=== PATIENT | male | born 1985 | race Caucasian/White ===

== ENCOUNTER 2020-01-03 18:33 | Emergency (ER) | payer MEDICARE, MEDICAID, SELFPAY ==
[2020-01-03 18:34] VITALS: BP 114/88; PULSE 83; RESP 16; TEMP 37; O2SAT 99; BMI 21.1
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
[2020-01-03 19:30] VITALS: BP 121/68; PULSE 62; RESP 18; O2SAT 100
[2020-01-03] MEDS: HYDROcodone-acetaminophen 5-325 mg Tablet 1 TAB PO (19:32)
== END 2020-01-03 19:41 | disposition home or self-care (01) ==
PROVIDERS: Emergency Provider Family Medicine; Family Provider Family Medicine; PCP Family Medicine
DX: T23.171A Burn of first degree of right wrist, initial encounter (principal); T20.16XA Burn of first degree of forehead and cheek, initial encounter; X08.8XXA Exposure to other specified smoke, fire and flames, initial encounter; F17.210 Nicotine dependence, cigarettes, uncomplicated
CPT/HCPCS: 12345; 99281; 99282

== ENCOUNTER 2020-03-07 13:35 | Emergency (ER) | payer MEDICARE, MEDICAID, SELFPAY ==
[2020-03-07 13:36] VITALS: BMI 21.1
[2020-03-07 13:41] VITALS: BP 116/70; PULSE 49; RESP 16; TEMP 37; O2SAT 100
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
[2020-03-07] MEDS: ondansetron 2 mg/ML SDV 2 mL 4 MG IVP (14:00)
[2020-03-07] MEDS: sodium chloride 0.9% 1,000 ML 999 ML IV (14:01)
[2020-03-07] MEDS: morphine 4 mg/mL SDV 1 mL IVP (14:01)
[2020-03-07] MEDS: iohexol 300 mg/mL 100 mL Btl IV (14:09)
[2020-03-07 14:16] LABS: Basophils % 0.6 %; Eosinophils # 0.1 10^3/uL (0.0-0.8); Eosinophils % 0.9 %; Hematocrit 37.8 % (42.0-52.0); Hemoglobin 12.4 g/dL (11.7-16.6); Lymphocytes # 3.6 10^3/uL (0.8-4.8); Lymphocytes % 53.7 %; Mean Corpuscular HGB Conc 32.8 g/dL (30.0-36.0); Mean Corpuscular Hemoglobin 31.9 pg (28.0-34.0); Mean Corpuscular Volume 97.2 fL (80-94); Mean Platelet Volume 9.8 fL (7.4-10.4); Monocytes # 0.6 10^3/uL (0.2-0.9); Monocytes % 9.6 %; Neutrophils # 2.34 10^3/uL (1.8-7.7); Neutrophils % 35.1 %; Nucleated Red Blood Cells % 0 %; Platelet Count 121 10^3/cmm (130-400); Red Blood Count 3.89 10^6/uL (4.1-5.3); Red Cell Distribution Width 13.3 % (12.1-15.1); White Blood Count 6.7 10^3/uL (4.0-10.0)
[2020-03-07 14:31] LABS: Alanine Aminotransferase 16 U/L (0-41); Alkaline Phosphatase 53 IU/L (40-130); Anion Gap 11.3 (5-19); Aspartate Amino Transferase 17 U/L (0-40); Blood Urea Nitrogen 15 mg/dL (6-20); Calcium 9.6 mg/dL (8.5-10.5); Carbon Dioxide 28 mmol/L (22-29); Chloride 104 mmol/L (98-107); Globulin 1.9 g/dL (1.3-4.6); Glomerular Filtration Rate 85.5 mL/min (90-130); Glucose 93 mg/dL (65-115); Osmolality Calculated 284 mOsm/kg (285-295); Potassium 4.3 mmol/L (3.5-5.1); Sodium 139 mmol/L (136-145); Total Bilirubin 0.4 mg/dL (0.15-1.2); Total Protein 5.9 g/dL (6.6-8.7)
[2020-03-07 15:26] VITALS: BP 108/70; PULSE 63; RESP 14; O2SAT 100
== END 2020-03-07 15:27 | disposition home or self-care (01) ==
PROVIDERS: Emergency Provider Emergency Medicine; PCP Family Medicine
DX: S32.038A Other fracture of third lumbar vertebra, initial encounter for closed fracture (principal); Y09 Assault by unspecified means; F17.210 Nicotine dependence, cigarettes, uncomplicated
CPT/HCPCS: 12345; 74177; 80053; 85025; 96361; 96374; 96375; 99282; 99283; J2270; J2405; J7030; Q9967

== ENCOUNTER 2021-07-22 11:26 | Emergency (ER) | payer MEDICARE, MEDICAID, SELFPAY ==
[2021-07-22 11:28] VITALS: BP 114/69; PULSE 60; RESP 15; TEMP 36.9; O2SAT 99; BMI 25.6
--- NOTE | 2021-07-22 11:37 | ECG_ITS ---
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 Measurements Intervals [place] Rate: 67 P: 70 MO: 195 QRS: 53 QRSD: 99 T: 52 QT: 425 QTc: 449 Interpretive Statements SINUS RHYTHM WITH SINUS ARRHYTHMIA Compared to ECG 11/06/2018 22:51:15 No significant changes Electronically Signed On 07-22-2021 20:38:37 SPECIAL [employer] by Jez Bowling M.D. [email or web address]
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
--- NOTE | 2021-07-22 11:38 | CT_ITS ---
WS: [id number] CT CERVICAL SPINE HISTORY: Neck pain after seizure. TECHNIQUE: Contiguous 2.5 mm axial imaging performed through the entire cervical spine. Sagittal and coronal reformats also performed. [facility] use at least one of these dose o ptimization techniques: automated exposure control; mA and/or kV adjustment per patient size (include s targeted exams where dose is matched to clinical indication); or iterative reconstruction. DLP: 627.62 mGy.cm COMPARISON: 02/01/2017 Normal cervical alignment. Craniocervical junction, atlantodental interval and C1-C2 alignment is nor mal. C2-C3: Normal. C3-C4: Normal. C4-C5: Normal. C5-C6: Normal. C6-C7: Normal. C7-T1: Normal. Soft tissues are normal. Lung apices are clear. CT/CT cervical spin wo con* [id number] IMPRESSION: Normal cervical spine.
--- NOTE | 2021-07-22 11:38 | CT_ITS ---
WS: [id number] CT HEAD NONCONTRAST HISTORY: new onset seizure TECHNIQUE: Contiguous axial imaging performed through the brain in 2.5 mm imaging. Bone and soft tiss ue windows. Sagittal and coronal reformats reviewed. All CT scans at [facility] use at least one of these dose optimization techniques: automated exposure control; mA and/or kV adjustment per pa tient size (includes targeted exams where dose is matched to clinical indication); or iterative recon struction. DLP: 925.69 mGy.cm COMPARISON: 11/07/2018 No acute intracranial hemorrhage, midline shift or mass effect. No atrophy or prior infarcts or herniation. Ventricles: Normal size with no hydrocephalus. Paranasal sinuses: As visualized are clear. Mastoid air cells: Well pneumatized. Calvarium and scalp: Skull is intact with no soft tissue edema or swelling. CT/CT head wo con* [id number] IMPRESSION: Negative head CT.
[2021-07-22 12:27] LABS: Basophils # 0.1 10^3/uL (0.0-0.1); Basophils % 0.6 %; Eosinophils # 0.1 10^3/uL (0.0-0.8); Eosinophils % 0.7 %; Hemoglobin 15.8 g/dL (11.7-16.6); Lymphocytes # 3.3 10^3/uL (0.8-4.8); Lymphocytes % 36.4 %; Mean Corpuscular HGB Conc 33.6 g/dL (30.0-36.0); Mean Corpuscular Hemoglobin 31.5 pg (28.0-34.0); Mean Corpuscular Volume 93.8 fl (80-94); Mean Platelet Volume 10.4 fL (7.4-10.4); Monocytes # 0.6 10^3/uL (0.2-0.9); Monocytes % 6.5 %; Neutrophils # 4.96 10^3/uL (1.8-7.7); Neutrophils % 55.6 %; Nucleated Red Blood Cells % 0 %; Platelet Count 232 10^3/cmm (130-400); Red Blood Count 5.01 10^6/uL (4.1-5.3); Red Cell Distribution Width 13.9 % (12.1-15.1); White Blood Count 8.9 10^3/uL (4.0-10.0)
[2021-07-22 12:51] LABS: Alanine Aminotransferase 11 U/L (0-41); Albumin Level 4.9 g/dL (3.5-5.2); Alkaline Phosphatase 81 IU/L (40-130); Anion Gap 22.9 (5-19); Aspartate Amino Transferase 17 U/L (0-40); Blood Urea Nitrogen 16 mg/dL (6-20); Calcium 9.7 mg/dL (8.5-10.5); Carbon Dioxide 21 mmol/L (22-29); Chloride 98 mmol/L (98-107); Creatine Phosphokinase 100 U/L (39-308); Creatinine Clr Calc Pharmacy 150.1117; Globulin 3.3 g/dL (1.3-4.6); Glomerular Filtration Rate 109.4 mL/min (90-130); Glucose 99 mg/dL (65-115); Osmolality Calculated 287 mOsm/kg (285-295); Potassium 3.9 mmol/L (3.5-5.1); Sodium 138 mmol/L (136-145); Total Bilirubin 0.6 mg/dL (0.15-1.2); Total Protein 8.2 g/dL (6.6-8.7)
[2021-07-22 14:00] VITALS: BP 102/65; PULSE 66; RESP 15; O2SAT 100
== END 2021-07-22 14:01 | disposition home or self-care (01) ==
PROVIDERS: Emergency Provider Family Medicine; PCP Family Medicine
DX: S09.8XXA Other specified injuries of head, initial encounter (principal); G40.89 Other seizures; F17.210 Nicotine dependence, cigarettes, uncomplicated; Y08.02XA Assault by strike by baseball bat, initial encounter
CPT/HCPCS: 70450; 72125; 80053; 82550; 85025; 93005; 99283

== ENCOUNTER 2023-03-27 10:25 | Emergency (ER) | payer MEDICARE, MEDICAID, SELFPAY ==
[2023-03-27 10:28] VITALS: BMI 17.8
--- NOTE | 2023-03-27 10:30 | ED_ITS ---
HPI - Weakness General: Chief complaint: Seizure Stated complaint: WEAKNESS Time Seen by Provider: 03/27/23 10:27 Source: patient Mode of arrival: EMS History of Present Illness: 37-year-old male with a history of seizures presents emergency room reporting having multiple seizures last couple days. Is been living in a trailer where there is no air conditioning he does state he has been taking all of his medications he has listed in his medication list diet valproic acid 500 mg once daily but he has a bottle with him of Keppra which is 500 mg twice daily he did not think he was taking it at valproic acid any longer. He had a couple of seizures last night and 3 this morning. He relates overall [place]. He is somewhat lethargic on arrival here but is able to give fairly good details. EMS reports they did not witness any seizure activity in route. MD Complaint: generalized weakness Onset (ago): day(s) Duration: intermittent Relieving factors: none Exacerbating factors: none Associated symptoms: Reports confusion; Denies chest pain, chills, melena, decreased appetite, diaphoresis, dysuria, easy bruising, fever(s), headache(s), myalgias, nausea, rash, short of breath, syncope or vomiting Review of Systems Const: Reports: fatigue and malaise; Denies: fever(s), chills or diaphoresis ENMT: Denies: throat pain, ear or mastoid pain, nasal discharge or nasal congestion Card: Denies: chest pain, palpitations, irregular heart rhythm, edema or syncope Resp: Denies: dyspnea, productive cough or non-productive cough GI: Denies: abdominal pain, nausea, vomiting or melena : Denies: dysuria, urinary frequency or urinary urgency Skin/Breast: Denies: rash or pruritus Neuro: Reports: confusion; Denies: headache(s) Johnnie/Lymph: Denies: easy bruising PFS ED PFSH: Medical History Closed head injury Generalized seizure Social History Smoking and tobacco status: current every day smoker Physical Exam Const: GENERAL APPEARANCE: cooperative and comfortable ORIENTATION/CONSCIOUSNESS: Yes awake, Yes oriented to person, Yes oriented to place and Yes oriented to time HENMT: COMMON NORMALS: normocephalic, atraumatic and hearing grossly normal bilaterally HEAD & SCALP: normocephalic and atraumatic Resp: COMMON NORMALS: normal respiratory effort, No retractions, No use of accessory muscles and clear to auscultation bilaterally AUSCULTATION: clear to auscultation bilaterally Cardio: COMMON NORMALS: regular rate, regular rhythm and No murmurs present (Cardio) RATE: regular rate RHYTHM: regular rhythm GI: COMMON NORMALS: Soft to palpation and No hepatosplenomegaly present AUSCULTATION: Yes normoactive bowel sounds PALPATION: Yes Soft to palpation, No Tenderness to palpation present (GI), No Guarding due to palpation present (GI) and Yes No hepatosplenomegaly present Extremity: COMMON NORMALS: normal to inspection, capillary refill normal, no clubbing, cyanosis or edema, no calf tenderness and no pedal edema Neuro: SENSORIUM/ORIENTATION: Yes oriented to person, Yes oriented to place and Yes oriented to time Skin: COMMON NORMALS: no rashes or lesions noted GENERAL SKIN EXAM: no rashes or lesions noted Course Vital Signs: Vital signs: Vital Signs Temperature 98.8 F 03/27/23 10:31 Pulse Rate 48 L 03/27/23 13:00 Respiratory Rate 16 03/27/23 13:00 Blood Pressure 106/70 03/27/23 13:00 Pulse Oximetry 100 03/27/23 13:00 Oxygen Delivery Me thod Room Air 03/27/23 13:00 MDM - Weakness Medical Decision Making Labs unremarkable. mobile lab technician reviewed is not appears to take his medications he has not had filled for subhilar. He stopped taking divalproex acid. Continue his low Bactrim and did load him. Here continue his current dose. We discussed other options. Patient became more awake currently and wishes to leave. I strongly encouraged to establish with primary care and neurology. Medical Records I reviewed the patient's medical records. Lab Data I reviewed the patient's lab results. 03/27/23 11:19 03/27/23 11:19 Laboratory Results WBC 6.47 10^3/uL (3.29-11.43) 03/27/23 11:19 RBC 4.17 10^6/uL (3.85-5.65) 03/27/23 11:19 Hgb 13.20 g/dL (11.27-16.99) 03/27/23 11:19 Hct 39.8 % (37-53) 03/27/23 11:19 MCV 95.4 fl (82-101) 03/27/23 11:19 MCH 31.7 pg (27-33) 03/27/23 11:19 MCHC 33.2 g/dL (30-55) 03/27/23 11:19 RDW 15.0 % (12.1-15.1) 03/27/23 11:19 Plt Count 161 10^3/cmm (157-399) 03/27/23 11:19 MPV 9.6 fL (7.4-10.4) 03/27/23 11:19 Neut % (Auto) 48.7 % 03/27/23 11:19 Lymph % (Auto) 42.0 % 03/27/23 11:19 [place] % (Auto) 7.4 % 03/27/23 11:19 Eos % (Auto) 1.2 % 03/27/23 11:19 Baso % (Auto) 0.5 % 03/27/23 11:19 Neut # (Auto) 3.15 10^3/uL (1.8-7.7) 03/27/23 11:19 Lymph # (Auto) 2.7 10^3/uL (0.8-4.8) 03/27/23 11:19 [place] # (Auto) 0.5 10^3/uL (0.2-0.9) 03/27/23 11:19 Eos # (Auto) 0.1 10^3/uL (0.0-0.8) 03/27/23 11:19 Baso # (Auto) 0.0 10^3/uL (0.0-0.1) 03/27/23 11:19 Nucleated RBC % (auto) 0 % 03/27/23 11:19 Nucleated RBCs # 0.0 /100WBC 03/27/23 11:19 Sodium 142 mmol/L (136-145) 03/27/23 11:19 Potassium 4.2 mmol/L (3.5-5.1) 03/27/23 11:19 Chloride 107 mmol/L (98-107) 03/27/23 11:19 Carbon Dioxide 27 mmol/L (22-29) 03/27/23 11:19 Anion Gap 12.2 (5-19) 03/27/23 11:19 BUN 19 mg/dL (6-20) 03/27/23 11:19 Creatinine 0.7 mg/dL (0.7-1.2) 03/27/23 11:19 GFR Calculation 126.9 mL/min (90-130) 03/27/23 11:19 Glucose 97 mg/dL (65-115) 03/27/23 11:19 Calculated Osmolality 296 mOsm/kg (285-295) H 03/27/23 11:19 Calcium 9.0 mg/dL (8.5-10.5) 03/27/23 11:19 Total Bilirubin 0.3 mg/dL (0.15-1.2) 03/27/23 11:19 AST 18 U/L (0-40) 03/27/23 11:19 ALT 12 U/L (0-41) 03/27/23 11:19 Alkaline Phosphatase 88 U/L (40-130) 03/27/23 11:19 Total Protein 6.3 g/dL (6.6-8.7) L 03/27/23 11:19 Albumin 4.4 g/dL (3.5-5.2) 03/27/23 11:19 Globulin 1.9 g/dL (1.3-4.6) 03/27/23 11:19 Valproic Acid 2.8 ug/mL (50-100) L 03/27/23 11:19 Levetiracetam 53.1 mcg/mL (6.0-46.0) H 03/27/23 11:19 Discharge Plan Discharge Patient Disposition: Home Clinical Impression: Generalized seizure Condition: Stable Prescriptions: No Action levetiracetam 1,000 mg tablet 1,000 mg PO BID Discharge Orders: Discharge ED (Routine); Ordered 03/27/23 Ordered By: Mook Cruz Referrals: Pastora Kaplan MD [Primary Care Provider] - Discharge Diet: Usual diet Discharge Activity: Limit activity as instructed Patient Instructions: Opioid Safety, Pain Management Activity Restrictions/Additional Instructions: Recommend you resume taking your Keppra regularly at 1000 mg twice a day Case management will help get you set up with neurologist and a primary care physi nara. Coding Level of Care Code ED Insemination Worker for Thomas Workman
[2023-03-27 10:31] VITALS: BP 110/69; PULSE 44; RESP 16; TEMP 37.1; O2SAT 100
[2023-03-27 10:45] VITALS: BP 103/72; PULSE 52; RESP 19; O2SAT 99
[2023-03-27 11:00] VITALS: BP 114/72; PULSE 48; RESP 12; O2SAT 99
[2023-03-27 11:15] VITALS: BP 114/72; PULSE 49; RESP 18; O2SAT 100
[2023-03-27 11:28] LABS: Basophils % 0.5 %; Eosinophils # 0.1 10^3/uL (0.0-0.8); Eosinophils % 1.2 %; Hematocrit 39.8 % (37-53); Lymphocytes # 2.7 10^3/uL (0.8-4.8); Mean Corpuscular HGB Conc 33.2 g/dL (30-55); Mean Corpuscular Hemoglobin 31.7 pg (27-33); Mean Corpuscular Volume 95.4 fl (82-101); Mean Platelet Volume 9.6 fL (7.4-10.4); Monocytes # 0.5 10^3/uL (0.2-0.9); Monocytes % 7.4 %; Neutrophils # 3.15 10^3/uL (1.8-7.7); Neutrophils % 48.7 %; Nucleated Red Blood Cells % 0 %; Platelet Count 161 10^3/cmm (157-399); Red Blood Count 4.17 10^6/uL (3.85-5.65); White Blood Count 6.47 10^3/uL (3.29-11.43)
[2023-03-27 11:30] VITALS: PULSE 47; RESP 18; O2SAT 100
[2023-03-27 13:00] VITALS: BP 106/70; PULSE 48; RESP 16; O2SAT 100
[2023-03-27 13:10] LABS: Alanine Aminotransferase 12 U/L (0-41); Albumin Level 4.4 g/dL (3.5-5.2); Alkaline Phosphatase 88 U/L (40-130); Anion Gap 12.2 (5-19); Aspartate Amino Transferase 18 U/L (0-40); Blood Urea Nitrogen 19 mg/dL (6-20); Carbon Dioxide 27 mmol/L (22-29); Chloride 107 mmol/L (98-107); Globulin 1.9 g/dL (1.3-4.6); Glomerular Filtration Rate 126.9 mL/min (90-130); Glucose 97 mg/dL (65-115); Osmolality Calculated 296 mOsm/kg (285-295); Potassium 4.2 mmol/L (3.5-5.1); Sodium 142 mmol/L (136-145); Total Bilirubin 0.3 mg/dL (0.15-1.2); Total Protein 6.3 g/dL (6.6-8.7)
[2023-03-27 13:11] LABS: Valproic Acid Level 2.8 ug/mL (50-100)
--- NOTE | 2023-03-27 15:33 | DCPLANNER ---
Addendum entered by Dorota Hernandez 04/04/23 13:53: Patient has a follow up appointment scheduled for March at 2:[address] Cordero at neurology. Original Note: architectural project manager had message to schedule a follow up appointment for patient for neurology. architectural project manager sent patients information to the front office staff at neurology. Patients information will be printed and reviewed. Clinic will call patient with appointment information.
--- NOTE | 2023-03-27 15:34 | DCPLANNER ---
ux manager had message to speak with patient about primary care follow up. outsole caser called phone number [phone], unable to speak with patient at this time, a voicemail was left for patient to return community case manager phone call.
[2023-03-28 11:01] LABS: Levetiracetam Immunoassy 53.1 mcg/mL (6.0-46.0)
== END 2023-03-27 13:29 | disposition home or self-care (01) ==
PROVIDERS: Emergency Provider Family Medicine; PCP Family Medicine
DX: G40.409 Other generalized epilepsy and epileptic syndromes, not intractable, without status epilepticus (principal); F17.210 Nicotine dependence, cigarettes, uncomplicated
CPT/HCPCS: 36415; 80053; 80164; 80177; 85025; 96365; 99284; J1953

== ENCOUNTER → 2023-04-06 10:02 | Outpatient (BNVA) | payer MEDICARE, MEDICAID, SELFPAY | PROVIDERS: PCP Family Medicine; Referring Provider Family Medicine; Visit Provider Specialist | DX: G40.309 Generalized idiopathic epilepsy and epileptic syndromes, not intractable, without status epilepticus | CPT/HCPCS: 99205 ==

== ENCOUNTER 2023-05-19 16:18 | Emergency (ER) | payer MEDICARE, MEDICAID, SELFPAY ==
--- NOTE | 2023-05-19 16:24 | ED_ITS ---
HPI - Seizure General: Chief Complaint: Seizure Stated Complaint: seizures Time Seen by Provider: 05/19/23 16:19 Source: patient Mode of arrival: ambulatory History of Present Illness: HPI Narrative: 37-year-old male presents emergency room complaining of having had a seizure. Patient did not get his Keppra today. He reports having had 1 seizure so far. History of previous seizures he is currently on Keppra. MD complaint: seizure Seizure History: Yes Associated symptoms: Deny chest pain, chills or fever(s) Review of Systems Const: Denies: fever(s) or chills Card: Denies: chest pain Resp: Denies: dyspnea GI: Denies: abdominal pain : Denies: dysuria, urinary frequency or urinary urgency Musc: Denies: neck pain or back pain Skin/Breast: Denies: rash PFSH ED PFSH: Medical History Closed head injury Generalized seizure Social History Smoking and tobacco/nicotine status: current every day tobacco/nicotine user Physical Exam Const: COMMON NORMALS: no acute distress GENERAL APPEARANCE: cooperative and comfortable ORIENTATION/CONSCIOUSNESS: Yes awake, Yes oriented to person, Yes oriented to place and Yes oriented to time HENMT: COMMON NORMALS: normocephalic, atraumatic and hearing grossly normal bilaterally HEAD & SCALP: normocephalic and atraumatic Resp: COMMON NORMALS: normal respiratory effort, No retractions, No use of accessory muscles and clear to auscultation bilaterally AUSCULTATION: clear to auscultation bilaterally Cardio: COMMON NORMALS: regular rate, regular rhythm and No murmurs present (Cardio) RATE: regular rate RHYTHM: regular rhythm GI: COMMON NORMALS: Soft to palpation and No hepatosplenomegaly present AUSCULTATION: Yes normoactive bowel sounds PALPATION: Yes Soft to palpation, No Tenderness to palpation present (GI), No Guarding due to palpation present (GI) and Yes No hepatosplenomegaly present Extremity: COMMON NORMALS: normal to inspection, capillary refill normal, no clubbing, cyanosis or edema, no calf tenderness and no pedal edema Neuro: SENSORIUM/ORIENTATION: Yes oriented to person, Yes oriented to place and Yes oriented to time Skin: COMMON NORMALS: no rashes or lesions noted GENERAL SKIN EXAM: no rashes or lesions noted MDM - Seizure MDM Narrative Medical decision making narrative: Patient given IV Keppra will start p.o. Keppra. Follow-up with his neurologist within the next week. Return if has further seizures. Lab Data 05/19/23 16:40 05/19/23 16:40 Labs: Radiology Impressions Cervical Spine X-Ray 05/19/23 16:34 IMPRESSION: No acute findings. Head CT 05/19/23 16:34 IMPRESSION: 1. No acute intracranial injury identified. 2. Incidental paranasal sinus disease as above. Laboratory Results WBC 8.31 10^3/uL (3.29-11.43) 05/19/23 16:40 RBC 4.61 10^6/uL (3.85-5.65) 05/19/23 16:40 Hgb 14.80 g/dL (11.27-16.99) 05/19/23 16:40 Hct 43.1 % (37-53) 05/19/23 16:40 MCV 93.5 fl (82-101) 05/19/23 16:40 MCH 32.1 pg (27-33) 05/19/23 16:40 MCHC 34.3 g/dL (30-55) 05/19/23 16:40 RDW 14.5 % (12.1-15.1) 05/19/23 16:40 Plt Count 216 10^3/cmm (157-399) 05/19/23 16:40 MPV 9.3 fL (7.4-10.4) 05/19/23 16:40 Neut % (Auto) 60.7 % 05/19/23 16:40 Lymph % (Auto) 27.2 % 05/19/23 16:40 [place] % (Auto) 9.3 % 05/19/23 16:40 Eos % (Auto) 1.7 % 05/19/23 16:40 Baso % (Auto) 0.7 % 05/19/23 16:40 Neut # (Auto) 5.05 10^3/uL (1.8-7.7) 05/19/23 16:40 Lymph # (Auto) 2.3 10^3/uL (0.8-4.8) 05/19/23 16:40 [place] # (Auto) 0.8 10^3/uL (0.2-0.9) 05/19/23 16:40 Eos # (Auto) 0.1 10^3/uL (0.0-0.8) 05/19/23 16:40 Baso # (Auto) 0.1 10^3/uL (0.0-0.1) 05/19/23 16:40 Nucleated RBC % (auto) 0 % 05/19/23 16:40 Nucleated RBCs # 0.0 /100WBC 05/19/23 16:40 Sodium 140 mmol/L (136-145) 05/19/23 16:40 Potassium 4.4 mmol/L (3.5-5.1) 05/19/23 16:40 Chloride 101 mmol/L (98-107) 05/19/23 16:40 Carbon Dioxide 26 mmol/L (22-29) 05/19/23 16:40 Anion Gap 17.4 (5-19) 05/19/23 16:40 BUN 15 mg/dL (6-20) 05/19/23 16:40 Creatinine 0.9 mg/dL (0.7-1.2) 05/19/23 16:40 GFR Calculation 95.0 mL/min (90-130) 05/19/23 16:40 Glucose 108 mg/dL (65-115) 05/19/23 16:40 Calculated Osmolality 291 mOsm/kg (285-295) 05/19/23 16:40 Calcium 10.1 mg/dL (8.5-10.5) 05/19/23 16:40 Magnesium 2.2 mg/dL (1.7-2.3) 05/19/23 16:40 Total Bilirubin 0.4 mg/dL (0.15-1.2) 05/19/23 16:40 AST 18 U/L (0-40) 05/19/23 16:40 ALT 14 U/L (0-41) 05/19/23 16:40 Alkaline Phosphatase 120 U/L (40-130) 05/19/23 16:40 Total Protein 7.8 g/dL (6.6-8.7) 05/19/23 16:40 Albumin 4.6 g/dL (3.5-5.2) 05/19/23 16:40 Globulin 3.2 g/dL (1.3-4.6) 05/19/23 16:40 No radiology studies performed this visit Discharge Plan Discharge Patient Disposition: Home Clinical Impression: Generalized seizure Condition: Stable Prescriptions: New levetiracetam 500 mg tablet extended release 24 hr 2,000 mg PO Q24H Qty: 120 0RF No Action levetiracetam [Keppra XR] 500 mg tablet extended release 24 hr 2,000 mg PO DAILY Qty: 120 10RF citalopram 20 mg tablet 20 mg PO DAILY Qty: 30 10RF levetiracetam 1,000 mg tablet 1,000 mg PO BID Discharge Orders: Discharge ED (Routine); Ordered 05/19/23 Ordered By: Mook Cruz Referrals: Pastora Kaplan MD [Primary Care Provider] - Discharge Diet: Usual diet Discharge Activity: Resume usual activity Patient Instructions: Opioid Safety, Pain Management Coding Level of Care Code ED Forest Management Teacher for Thomas Workman
--- NOTE | 2023-05-19 16:34 | XRR_ITS ---
PROCEDURE INFORMATION: Exam: XR Cervical Spine Exam date and time: 05/19/2023 4:46 PM Age: 37 years old Clinical indication: Injury or trauma; Other: Seizure; Other: Unknown TECHNIQUE: Imaging protocol: Radiologic exam of the cervical spine. Views: 3 views. Other technique: AP, lateral and AP open mouth odontoid views of the cervical spine are submitted. COMPARISON: CT cervical spin wo con* [id number] 07/22/2021 11:53 AM FINDINGS: Bones/joints: Normal. No acute fracture. Normal alignment. Soft tissues: Unremarkable. XR/XR cervical spine 3V* [id number] IMPRESSION: No acute findings.
--- NOTE | 2023-05-19 16:34 | CTR_ITS ---
PROCEDURE INFORMATION: Exam: CT Head Without Contrast Exam date and time: 05/19/2023 4:56 PM Age: 37 years old Clinical indication: Injury or trauma; Other: Seizure; Blunt trauma (contusions or hematomas); Consciousness not specified; Additional info: Head trauma TECHNIQUE: Imaging protocol: Computed tomography of the head without contrast. Radiation optimization: All CT scans at this facility use at least one of these dose optimization techniques: automated exposure control; mA and/or kV adjustment per patient size (includes targeted exams where dose is matched to clinical indication); or iterative reconstruction. REPORTING DATA: Count of CT and Cardiac NM exams in prior 12 months: This patient has received 0 known CTs and 0 known cardiac nuclear medicine studies in the 12 months prior to the current study. COMPARISON: CT head wo con* [id number] 07/22/2021 11:50 AM RADIATION DOSE METRICS: Total DLP (mGy-cm): 972.18 FINDINGS: Brain: Normal. No hemorrhage. Unremarkable white matter. No mass effect. Ventricles: No hydrocephalus or evidence of increased intracranial pressure. Paranasal sinuses: Dependent fluid/mucous posteroinferior left frontal sinus. Mastoid air cells: Visualized mastoid air cells are well aerated. Bones/joints: No acute abnormality. No acute fracture. Soft tissues: Unremarkable. CT/CT head wo con* [id number] IMPRESSION: 1. No acute intracranial injury identified. 2. Incidental paranasal sinus disease as above.
[2023-05-19 16:58] LABS: Basophils # 0.1 10^3/uL (0.0-0.1); Basophils % 0.7 %; Eosinophils # 0.1 10^3/uL (0.0-0.8); Eosinophils % 1.7 %; Hematocrit 43.1 % (37-53); Lymphocytes # 2.3 10^3/uL (0.8-4.8); Lymphocytes % 27.2 %; Mean Corpuscular HGB Conc 34.3 g/dL (30-55); Mean Corpuscular Hemoglobin 32.1 pg (27-33); Mean Corpuscular Volume 93.5 fl (82-101); Mean Platelet Volume 9.3 fL (7.4-10.4); Monocytes # 0.8 10^3/uL (0.2-0.9); Monocytes % 9.3 %; Neutrophils # 5.05 10^3/uL (1.8-7.7); Neutrophils % 60.7 %; Nucleated Red Blood Cells % 0 %; Platelet Count 216 10^3/cmm (157-399); Red Blood Count 4.61 10^6/uL (3.85-5.65); Red Cell Distribution Width 14.5 % (12.1-15.1); White Blood Count 8.31 10^3/uL (3.29-11.43)
[2023-05-19 17:16] LABS: Alanine Aminotransferase 14 U/L (0-41); Albumin Level 4.6 g/dL (3.5-5.2); Alkaline Phosphatase 120 U/L (40-130); Anion Gap 17.4 (5-19); Aspartate Amino Transferase 18 U/L (0-40); Blood Urea Nitrogen 15 mg/dL (6-20); Calcium 10.1 mg/dL (8.5-10.5); Carbon Dioxide 26 mmol/L (22-29); Chloride 101 mmol/L (98-107); Globulin 3.2 g/dL (1.3-4.6); Glucose 108 mg/dL (65-115); Magnesium 2.2 mg/dL (1.7-2.3); Osmolality Calculated 291 mOsm/kg (285-295); Potassium 4.4 mmol/L (3.5-5.1); Sodium 140 mmol/L (136-145); Total Bilirubin 0.4 mg/dL (0.15-1.2); Total Protein 7.8 g/dL (6.6-8.7)
== END 2023-05-19 17:39 | disposition home or self-care (01) ==
PROVIDERS: Emergency Provider Family Medicine; PCP Family Medicine
DX: G40.409 Other generalized epilepsy and epileptic syndromes, not intractable, without status epilepticus (principal); Z72.0 Tobacco use
CPT/HCPCS: 70450; 72040; 80053; 83735; 85025; 96365; 99285; J1953

== ENCOUNTER → 2023-07-19 12:19 | Outpatient (BNVA) | payer MEDICARE, MEDICAID, SELFPAY | PROVIDERS: PCP Family Medicine; Visit Provider Specialist | DX: G40.309 Generalized idiopathic epilepsy and epileptic syndromes, not intractable, without status epilepticus; F06.30 Mood disorder due to known physiological condition, unspecified | CPT/HCPCS: 99214 ==

== ENCOUNTER → 2024-07-16 11:57 | Outpatient (BNVA) | payer MEDICARE, MEDICAID, SELFPAY | PROVIDERS: PCP Family Medicine; Visit Provider Specialist | DX: G40.309 Generalized idiopathic epilepsy and epileptic syndromes, not intractable, without status epilepticus (principal); F06.30 Mood disorder due to known physiological condition, unspecified | CPT/HCPCS: 99215 ==